=== PATIENT | male | born 1955 | race Caucasian/White ===

== ENCOUNTER 2020-07-02 09:24 | Outpatient (REF) | payer BC, SELFPAY ==
--- NOTE | 2020-07-02 15:20 | SKI_PTH ---
PATIENT: Christophe Mayo LOC: [facility] U#:[id number] AGE/SX: 65/M ROOM: RE07/02/[address]: ARMIDA Cardona : 1955 BED: DIS: 07/02/2020 SPEC #: [id number] RECD: 07/03/20 09:58 STATUS: AME REQ #: [id number] ZAIRA: 07/02/20 15:[address]: Juan Carlos Greene DEPT: Surgical Specimen RECD BY: Deanne Downs ENTERED: 07/03/20 09:59 SP TYPE: ASHLEY CACERES DR: Yaya Packer Tissues: 1 - SKIN BIOPSY(SHAVE/PUNCH) 2 - SKIN BIOPSY(SHAVE/PUNCH) Procedures: SKIN LEVEL 4 Comments: [id number]
== END 2020-07-02 09:44 ==
LOC: LBN 09:24
PROVIDERS: PCP Family Medicine; Visit Provider Physician Assistant
DX: L82.1 Other seborrheic keratosis (principal); L43.8 Other lichen planus
CPT/HCPCS: 88305